=== PATIENT | female | born 1960 | race Caucasian/White ===

== ENCOUNTER → 2016-06-23 | Outpatient (CLI) | payer BC ==
[~2016-06-23] MED LIST: CALC-308 PO; FLUT9.9S NSEACH; MULT1CAP27 PO
--- OUTSIDE RECORDS SUMMARY | 2016-06-23 08:00 | XMS REPORT | Continuity of Care Document ---
Author Author [facility] Organization [facility] Address Unknown Phone Unavailable Care Team Providers Care Supervisor Compounding And Finishing Name Role Phone IVA ANNE MD PCP Insurance Providers Payer Name Policy Number Subscriber Name Relationship [facility] [id number] Royal Hammer 01 Advance Directives Directive Response Recorded Date/Time Advance Directives No 10/20/15 8:18am Health Care Power of Agricultural Research Engineer No 10/20/15 8:18am Organ Donor Yes 10/20/15 8:18am Resuscitation Status Full Code 10/20/15 8:18am Problems No problem information available. Medications Current Home Medications Medication Dose Units Route Directions Days/Qty Instructions Start Date Multivitamin 1 Each 2 Each Oral Daily 10/20/15 Calcium Carbonate 500 Mg 1,000 Mg Oral Bedtime take 2 (500mg) tab 03/27 Fluticasone Propionate 9.9 Ml 1 [place] Each Nostril Daily 10/20/15 Social History Social History Problem Response Recorded Date/Time Recent Foreign Travel No 10/20/2015 8:26am Smoking Status Former Smoker 10/20/2015 8:26am Query Response Start Date Stop Date Smoking Status Former Smoker Hospital Discharge Instructions Patient Instructions Physician Instructions New, Converted or Re-Newed RX: RX on Chart Plan of Care/Instructions/FU: 10 year repeat colonoscopy unless family history of colon cancer then 5 years. Activity as Tolerated: Yes Discharge Diet: Regular Diet (high fiber) Care Plan Patient Instructions:: 10 year repeat colonoscopy unless family history of colon cancer then 5years. Plan of Care Discharge Date 10/20/15 10:13am Instructions/Education Provided Colonoscopy (DC) Prescriptions See Medication Section Functional Status No functional status results. Allergies, Adverse Reactions, Alerts No known allergies. Immunizations No immunization records. Vital Signs Acute Vital Signs Vital Response Date/Time Temperature (Fahrenheit) 97.0 degrees F (97.6 - 99.5) 10/20/2015 10:13am Temperature (Calculated Celsius) 36.10765 degrees C (36.4 - 37.5) 10/20/2015 10:13am Temperature Source Tympanic 10/20/2015 10:13am Pulse Rate (adult) 51 bpm (60 - 90) 10/20/2015 10:13am Respiratory Rate 16 bpm (12 - 24) 10/20/2015 10:13am O2 Sat by Pulse Oximetry 97 % (88 - 100) 10/20/2015 10:13am Blood Pressure 95/65 mm Hg 10/20/2015 10:13am Pain Pain Intensity 0 10/20/2015 10:13am Height (Feet) 5 feet 10/20/2015 8:26am Height (Inches) 6.00 inches 10/20/2015 8:26am Height (Calculated Centimeters) 167.211984 cm 10/20/2015 8:26am Weight (Pounds) 177 pounds 10/20/2015 8:26am Weight (Ounces) 0.0 oz 10/20/2015 8:26am Weight (Calculated Grams) 70765.850 gm 10/20/2015 8:26am Weight (Calculated Kilograms) 80.727755 kilograms 10/20/2015 8:26am Calculated BMI 28.6 10/20/2015 8:26am Results No known relevant diagnostic tests, laboratory data and/or discharge summary. Procedures Procedure Status Date Provider(s) Anesthesia for 30 minutes Active 10/20/15 DICK HICKMAN DO Diagnostic colonoscopy Completed 10/20/15 DICK HICKMAN DO Encounters Encounter Location Arrival/Admit Date Discharge/Depart Date Attending Provider Registered [facility] 10/20/15 8:07am DICK HICKMAN DO Registered Clinic [facility] 10/15/15 5:41am DICK HICKMAN DO
--- NOTE | 2016-06-23 18:39 | Diagnostic Imaging Report ---
EXAMINATION: Left breast diagnostic mammogram. The current study was also evaluated with a Computer Aided Detection (CAD) system. INDICATION: New group of calcification in the medial aspect of the left breast. FINDINGS: The magnification compression views demonstrate heterogeneous cluster of calcification with difference sizes seen in the medial aspect of the left breast between 8 to 9 o'clock. These are newly detected compared to prior exam from 03/20/2015. There is another similar small cluster of calcification anteriorly in the upper periareolar region. These group of calcifications have central lucency and in favor of benign etiology. No soft tissue mass is seen. IMPRESSION: Cluster of calcifications in the medial aspect of the left breast and upper periareolar region with minimal heterogeneity and no definite associated mass. Ultrasound evaluation pending. ACR BI-RADS Category 0: Incomplete. (Needs additional imaging evaluation). Result letter will be mailed to the patient. Note: At least 10% of breast cancer is not imaged by mammography. Dictated by: Dictated on workstation # [id number]
--- NOTE | 2016-06-23 19:08 | Diagnostic Imaging Report ---
EXAMINATION: Left breast ultrasound. INDICATION: Groups of calcifications in the superior, periareolar and medial aspect of the left breast. FINDINGS: Four quadrants and the retroareolar region were scanned. The calcifications were not identified and there is no associated suspicious mass seen. IMPRESSION: No abnormality is seen. The two groups of calcifications in the left breast demonstrate are indeterminate but favored to be benign. A six-month followup left mammogram to ensure stability is recommended. ACR BI-RADS Category 3: Probably benign findings. Result letter will be mailed to the patient. Note: At least 10% of breast cancer is not imaged by mammography. Dictated by: Dictated on workstation # [id number]
== END ==
LOC: RAD 07:57
DX: R92.8 Other abnormal and inconclusive findings on diagnostic imaging of breast (principal)
CPT/HCPCS: 76641

== ENCOUNTER → 2016-12-23 | Outpatient (CLI) | payer BC ==
--- NOTE | 2016-12-23 10:42 | Diagnostic Imaging Report ---
Left breast diagnostic mammogram with 3-D tomographic views acquired. INDICATION: Followup left breast calcifications. COMPARISON: 06/23/2016, exam. FINDINGS: The left breast is composed of scattered fibroglandular densities. There is a group of calcifications seen in the medial aspect of the left breast and in the retroareolar region. These calcifications appear minimally more prominent compared to the prior exam. They do have generally rounded morphology with no significant heterogeneity in their shape. Slight differences in their sizes appear to be present. No associated mass is seen in both groups. Upon careful review these do not appear to have significantly changed and probably appear slightly more prominent on the current exam due to the acquired images with the new 3-D technique. IMPRESSION: Again seen groups of calcifications in the periareolar and medial aspect of the left breast. They appear minimally more prominent compared to the prior study; however, this is likely secondary to technique difference with no definitive change identified. These are favored to be benign. Another followup in six months is recommended to ensure further stability. Stereotactic biopsy evaluation could be considered as an alternative. ACR BI-RADS Category 3: Probably benign findings. Result letter will be mailed to the patient. Note: At least 10% of breast cancer is not imaged by mammography. Dictated by: Dictated on workstation # [id number]
== END ==
LOC: RAD 08:47
DX: R92.1 Mammographic calcification found on diagnostic imaging of breast (principal)

== ENCOUNTER → 2017-06-30 | Outpatient (CLI) | payer BC ==
--- NOTE | 2017-06-30 15:46 | Diagnostic Imaging Report ---
INDICATION: Followup calcifications. At this time there are no current complaints. EXAMINATION: Bilateral breast digital diagnostic mammogram with CAD. The current study was also evaluated with a Computer Aided Detection (CAD) system. COMPARISON: This study was compared to the prior exams from 03/07/14 to 12/23/2016. FINDINGS: The screening mammogram performed at [facility] in [place], [place] on 06/01/2016 noted developing microcalcifications in the 8 o'clock position of the left breast. In reviewing that exam, there is also a new group of calcifications in the medial supra-areolar region of the left breast. These calcifications were felt to be most likely benign on the subsequent diagnostic mammogram and ultrasound exam of 06/23/2016. The calcifications did seem minimally more prominent on the followup exam of 12/23/2016 and still had a generally benign appearance. On this study, the calcifications are again identified and do not appear to have changed adversely. They do seem somewhat coarser than on the prior study but these calcifications still have a generally benign appearance. I would recommend that a short-term (six month) followup mammogram of the left breast be obtained for continued evaluation, however. The overall appearance of the breasts has not changed significantly, otherwise. There are scattered fibroglandular densities in both breasts which could obscure a lesion. There is no primary or secondary sign of malignancy noted. IMPRESSION: The calcifications in the left periareolar region and in the 8 o'clock position of the left breast, seen previously, are somewhat coarser than noted on the prior exam but do not appear to have changed adversely. Most likely these calcifications are benign. Recommendations as above. ACR BI-RADS Category 3: Probably benign findings. Result letter will be mailed to the patient. Note: At least 10% of breast cancer is not imaged by mammography. Dictated by: Dictated on workstation # [id number]
== END ==
LOC: RAD 08:47
DX: R92.1 Mammographic calcification found on diagnostic imaging of breast (principal)
CPT/HCPCS: 77066

== ENCOUNTER 2018-02-08 08:03 | Day surgery (SDC) | payer BC ==
[~2018-02-08] VITALS: Ht 165.1 cm; Wt 80.3 kg
--- OUTSIDE RECORDS SUMMARY | 2018-02-08 08:10 | XMS REPORT | Continuity of Care Document ---
Author Author [facility] Organization [facility] Address Unknown Phone Unavailable Allergies Active Description Code Type Severity Reaction Onset Reported/Identified Relationship to Patient Clinical Status Yes No Known Drug Allergies [id number] Drug Allergy Unknown N/A 10/20/2015 Medications There is no data. Problems Date Dx Coded Attending Type Code Diagnosis Diagnosed By 10/20/2015 DICK HICKMAN DO Ot Z12.11 ENCOUNTER FOR SCREENING FOR MALIGNANT NE 10/28/2015 DICK HICKMAN DO Ot Z12.11 ENCOUNTER FOR SCREENING FOR MALIGNANT NE 07/06/2016 ABRIL VALLES CORK INSULATOR Ot R92.8 OTH ABN AND INCONCLUSIVE FINDINGS ON DX 12/22/2016 ABRIL VALLES CORK INSULATOR Ot R92.8 OTH ABN AND INCONCLUSIVE FINDINGS ON DX 12/29/2016 ABRIL VALLES CORK INSULATOR Ot R92.1 MAMMOGRAPHIC CALCIFCN FOUND ON DIAGNOSTI 01/04/2017 ABRIL VALLES CORK INSULATOR Ot R92.1 MAMMOGRAPHIC CALCIFCN FOUND ON DIAGNOSTI 01/04/2017 ABRIL VALLES CORK INSULATOR Ot R92.1 MAMMOGRAPHIC CALCIFCN FOUND ON DIAGNOSTI 01/04/2017 ABRIL VALLES CORK INSULATOR Ot R92.1 MAMMOGRAPHIC CALCIFCN FOUND ON DIAGNOSTI 01/06/2017 ABRIL VALLES CORK INSULATOR Ot R92.1 MAMMOGRAPHIC CALCIFCN FOUND ON DIAGNOSTI 06/27/2017 ABRIL VALLES CORK INSULATOR Ot R92.8 OTH ABN AND INCONCLUSIVE FINDINGS ON DX 06/27/2017 ABRIL VALLES CORK INSULATOR Ot R92.1 MAMMOGRAPHIC CALCIFCN FOUND ON DIAGNOSTI 06/30/2017 ABRIL VALLES CORK INSULATOR Ot R92.8 OTH ABN AND INCONCLUSIVE FINDINGS ON DX 06/30/2017 ABRIL VALLES CORK INSULATOR Ot R92.1 MAMMOGRAPHIC CALCIFCN FOUND ON DIAGNOSTI 07/03/2017 ABRIL VALLES CORK INSULATOR Ot R92.1 MAMMOGRAPHIC CALCIFCN FOUND ON DIAGNOSTI 07/13/2017 ABRIL VALLES CORK INSULATOR Ot R92.1 MAMMOGRAPHIC CALCIFCN FOUND ON DIAGNOSTI 01/29/2018 ABRIL VALLES Ot R92.8 OTH ABN AND INCONCLUSIVE FINDINGS ON DX 01/29/2018 ABRIL VALLESP Ot R92.1 MAMMOGRAPHIC CALCIFCN FOUND ON DIAGNOSTI 01/29/2018 ABRIL VALLES Ot R92.1 MAMMOGRAPHIC CALCIFCN FOUND ON DIAGNOSTI Procedures There is no data. Results There is no data. Encounters ACCT No. Visit Date/Time Discharge Status Pt. Type Provider Facility Loc./Unit Complaint [id number] 06/04/2016 09:10:08 06/04/2016 23:59:59 CLS Outpatient DalyByron [id number] 01/30/2018 08:52:00 01/30/2018 23:59:59 CLS Outpatient OMID FELICIANO, IVA R [facility] [address] RAD BILIOUS VOMITING W/ NAUSEA [id number] 06/30/2017 08:47:00 06/30/2017 23:59:59 CLS Outpatient ABRIL VALLES [facility] [address] RAD ABNORMAL MAMMO [id number] 12/23/2016 08:47:00 12/23/2016 23:59:59 CLS Outpatient ABRIL VALLES CORK INSULATOR [facility] [address] RAD ABNORMAL MAMMO [id number] 06/23/2016 07:57:00 06/23/2016 23:59:59 CLS Outpatient ABRIL VALLES CORK INSULATOR [facility] [address] RAD ABNORMAL MAMMO [id number] 10/20/2015 08:07:00 10/20/2015 10:13:00 DIS Outpatient DICK HICKMAN DO [facility] [id number] 10/15/2015 05:41:00 10/15/2015 23:59:59 CLS Outpatient DICK HICKMAN DO [facility] [address] PREOP
--- OUTSIDE RECORDS SUMMARY | 2018-02-08 08:10 | XMS REPORT ---
Author Author Byron Kauffman [facility] Address [address] [place], [place] [id number] Care Team Providers Care Medical Planner Name Role Phone Byron Kauffman PCP Unavailable Allergies and Adverse Reactions Not available. Plan of Treatment Not available. Medications Active Name Start Date Estimated Completion Date SIG Comments Zithromax Z-Lawrence 250 mg oral tablet 06/04/2016 06/09/2016 take 2 tablets ( 500 mg) by oral route once daily for 1 day then 1 tablet (250 mg) by oral route once daily for 4 days pseudoephedrine HCl 120 mg oral tablet extended release 06/04/20162015 take 1 tablet (120 mg) by oral route every 12 hours as needed for 4 days Problem List Not available. Vital Signs Date Time BP-Sys(mm[Hg] BP-Annalee(mm[Hg]) HR(bpm) RR(rpm) Temp WT HT HC BMI BSA BMI Percentile O2 Sat(%) 06/04/2016 8:15:00 AM 124 mmHg 82 mmHg 69 bpm 18 rpm 97.3 F 190 lbs 66 in 30.67 kg/m2 2.00 m2 98 % Social History Not available. History of Procedures Not available. Results Summary Not available. History Of Immunizations Not available. History of Past Illness Name Date of Onset Comments Acute frontal sinusitis, recurrence not specified Jun 04 2016 8:17AM Payers Insurance Name Company Name Plan Name Plan Number Policy Number Policy Group Number [id number]/A History of Encounters Visit Date Visit Type Provider 06/04/2016 Office visit Byron Kauffman NP
[2018-02-08] MEDS ORDERED: LACTATED RINGERS 1,000 ML IV PRN (08:38)
[2018-02-08] MEDS ORDERED: DEXAMETHASONE 10 MG/ML (DECADRON) 1 ML VIAL ONE (08:41)
[2018-02-08] MEDS ORDERED: proPOfol 200 MG/20 ML (DIPRIVAN) VIAL IV ONE (08:41)
[2018-02-08] MEDS ORDERED: ONDANSETRON 4 MG/2 ML (SDV) Z0FRAN ONE (08:41)
[2018-02-08] MEDS ORDERED: LIDOCAINE PF 2% 5 ML (XYLOCAINE) VIAL ONE (08:41)
[2018-02-08] MEDS ORDERED: fentaNYL INJECTION 100 MCG/2 ML AMP ONE (08:41)
[2018-02-08] MEDS: LACTATED RINGERS 1,000 ML IV PRN ×2 (08:43→10:00)
[2018-02-08] MEDS ORDERED: ROCURONIUM 10 MG/ML 5 ML SYRINGE IV ONE (08:44)
[2018-02-08] MEDS ORDERED: SEVOFLURANE (ULTANE) 15 ML INHAL SOLN ONE ×4 (08:44→10:16)
[2018-02-08] MEDS ORDERED: ceFAZolin 2 GM IV Premixed 50 ML IV ONE (08:45)
[2018-02-08] MEDS ORDERED: FAMOTIDINE 20MG/2ML IV (PEPCID) IV ONE (08:45)
[2018-02-08] MEDS ORDERED: ONDANSETRON 4 MG/2 ML (SDV) Z0FRAN IV ONE (08:45)
[2018-02-08] MEDS ORDERED: SCOPOLAMINE 1.5 MG (TRANSDERM-SCOP) PATCH TOP ONE (08:45)
[2018-02-08 08:58] LABS: BASOPHILS % (AUTO) 1 % (0-10); EOSINOPHILS % (AUTO) 1 % (0-10); HEMATOCRIT 41 % (35-52); HEMOGLOBIN 14.6 G/DL (11.5-16.0); LYMPHOCYTES # (AUTO) 1.4 X 10^3 (1.0-4.0); LYMPHOCYTES % (AUTO) 35 % (12-44); MEAN CORPUSCULAR HEMOGLOBIN 32 PG (25-34); MEAN CORPUSCULAR HGB CONC 36 G/DL (32-36); MEAN CORPUSCULAR VOLUME 89 FL (80-99); MEAN PLATELET VOLUME 10.5 FL (7.4-10.4); MONOCYTES # (AUTO) 0.4 X 10^3 (0.0-1.0); MONOCYTES % (AUTO) 10 % (0-12); NEUTROPHILS # (AUTO) 2.1 X 10^3 (1.8-7.8); NEUTROPHILS % (AUTO) 53 % (42-75); PLATELET COUNT 184 10^3/uL (130-400); RED BLOOD COUNT 4.57 10^6/uL (4.35-5.85); RED CELL DISTRIBUTION WIDTH 12.4 % (10.0-14.5)
[2018-02-08 08:59] VITALS: BP 128/77
[2018-02-08] MEDS ORDERED: BUPIVACAINE 0.25% 30 ML (SENSORCAINE) VIAL ONE (09:13)
[2018-02-08] MEDS ORDERED: LIDOCAINE 1% INJ 20 ML 20 ML VIAL ONE (09:13)
[2018-02-08] MEDS ORDERED: BUPIVACAINE 0.5% 30 ML (SENSORCAINE) VIAL ONE (09:15)
--- NOTE | 2018-02-08 09:20 | Progress Note-Pre Operative ---
Pre-Operative Progress Note H&P Reviewed The H&P was reviewed, patient examined and no changes noted. Date Seen by Provider: Feb 08, 2018 Time Seen by Provider: 09:20 Date H&P Reviewed: Feb 08, 2018 Time H&P Reviewed: 09:20 Pre-Operative Diagnosis: ruq abdominal pain, symptomatic cholelithiasis DICK HICKMAN DO Feb 08, 2018 09:20
[2018-02-08] MEDS ORDERED: MIDAZOLAM 2 MG/2 ML (VERSED) VIAL ONE (09:27)
[2018-02-08] MEDS ORDERED: PHENYLEPHRINE 100 MCG/ML 10 ML (ANESTHESIA) SYR ONE (10:01)
[2018-02-08] MEDS ORDERED: ACHD5005 PO (10:22)
[2018-02-08] MEDS ORDERED: DOCU-143 PO (10:22)
--- NOTE | 2018-02-08 10:40 | Discharge Inst-Simple/Standard ---
Discharge Inst-Standard Discharge Medications New, Converted or Re-Newed RX: RX on Chart Patient Instructions/Follow Up Plan of Care/Instructions/FU: 2 Weeks Antonio. Stay nothing to eat or drink at this time. You need to go to [facility] for ERCP with Dr. Horne. This has been arranged for you. Activity as Tolerated: No Discharge Diet: Other Diet (Nothing to eat or drink till after ERCP.) Other Inst to Patient Follow up Appt: Make appointment for 2 weeks. Instructions: No lifting greater than 10 pounds. No strenuous activity. May shower in 24 hours, no tub bath or soaking. Use incentive spirometer at home as directed. No Smoking Skin/Wound Care: You have special glue over incision, it will fall off on its own. Symptoms to Report: Appetite Changes, Extremity Discoloration, Numbness/Tingling, Swelling Increased , Bleeding Excessive, Eyesight Changes, Pain Increased, Urine Color Change, Constipation(Persistent), Fever over 101 degree F, Pain/Pressure in chest, Urinating Difficulty, Cough Up/Vomit Blood, Heart Beat Irreg/Pounding, Pain/ Pressure in jaw, Vaginal Bleeding Increase, Cramps in feet or legs, Lightheadedness, Pain/Pressure in shoulder, Diarrhea(Persistent), Memory Changes Suddenly, Questions/Concerns, Weight gain consecutive days, Dizziness/ Fainting, Nausea/Vomiting, Shortness of Breath, Weight gain over 2 pounds. If eyes or skin turn yellow notify physician. If questions or concerns contact your physician Or seek help at emergency department. DICK HICKMAN DO Feb 08, 2018 10:40
--- NOTE | 2018-02-08 10:42 | Progress Note-Post Operative ---
Post-Operative Progess Note Surgeon (s)/Bilingual Research Interviewer (s) Surgeon DICK HICKMAN DO Bilingual Research Interviewer: Dr. Gallardo Pre-Operative Diagnosis ruq abdominal pain, symptomatic cholelithiasis Post-Operative Diagnosis same and choledocolithaisis Procedure & Operative Findings Date of Procedure 02/08/18 Procedure Performed/Findings lap gerri c ioc Anesthesia Type gen Estimated Blood Loss Estimated blood loss (mL): min Specimens/Packing Specimens Removed gallbladder DICK HICKMAN DO Feb 08, 2018 10:41
[2018-02-08] MEDS ORDERED: PROMETHAZINE INJ 25 MG/ML (PHENERGAN) AMP IVP ONE (10:45)
[2018-02-08] MEDS ORDERED: ONDANSETRON 4 MG/2 ML (SDV) Z0FRAN IVP PRN (10:45)
[2018-02-08] MEDS ORDERED: morphine INJ 10 MG/ML 1ML (SYR OR VIAL) IVP ONE ×2 (10:45→12:45)
--- NOTE | 2018-02-08 10:45 | Anesthesia-General Post-Op ---
General Patient Condition Mental Status/LOC: Same as Preop Cardiovascular: Satisfactory Nausea/Vomiting: Absent Respiratory: Satisfactory Pain: Controlled Complications: Absent Post Op Complications Complications None Follow Up Care/Instructions Patient Instructions None needed. Anesthesia/Patient Condition Patient Condition Patient is doing well, no complaints, stable vital signs, no apparent adverse anesthesia problems. No complications reported per nursing. VERONICA NIELSEN CRNA Feb 08, 2018 10:45
[2018-02-08 11:35] VITALS: BP 105/59
[2018-02-08 12:05] VITALS: BP 99/61
[2018-02-08] MEDS ORDERED: morphine INJ 4 MG/ML 1 ML (VIAL/SYRINGE) IVP PRN (12:30)
[2018-02-08 12:35] VITALS: BP 101/60
[2018-02-08 14:00] VITALS: BP 107/66
--- NOTE | 2018-02-08 14:23 | Diagnostic Imaging Report ---
Indication: Gallbladder disease. Findings: Intraoperative criteria was performed following cholecystectomy. There is mild intrahepatic and extrahepatic biliary dilatation. There are multiple intraluminal filling defects seen within the distal common bile duct compatible with choledocholithiasis. There is a small amount of contrast extending into the duodenum. Impression: Multiple intraluminal filling defects in the distal common bile duct compatible with choledocholithiasis. Moderate intrahepatic and extrahepatic biliary ductal dilatation. Dictated by: Dictated on workstation # [id number]
--- NOTE | 2018-02-13 22:22 | OPERATIVE REPORT ---
DATE OF SERVICE: 02/08/2018 PREOPERATIVE DIAGNOSIS: Symptomatic cholelithiasis. POSTOPERATIVE DIAGNOSIS: Symptomatic cholelithiasis with choledocholithiasis. PROCEDURE: Laparoscopic cholecystectomy with intraoperative cholangiogram. SURGEON: Alex Alvarez DO INVESTMENT ACCOUNTING CLERK: Dr. Gallardo, assisted in retraction, dissection and closure. ESTIMATED BLOOD LOSS: Minimal. COMPLICATIONS: None. INDICATIONS: The patient is a 58-year-old female with symptomatic cholelithiasis. She understands risks and benefits of procedure and wished to proceed with procedure. Consent was signed in the chart. PROCEDURE: The patient was taken to the operating suite, she was prepped and draped in sterile fashion. Surgical pause was performed. Sherif technique was used to enter the abdomen. Once entered, a 0 Vicryl was placed in a [id number] fashion on the fascia for closure at the end of the case. A balloon trocar was inserted into the abdomen and pneumoperitoneum was achieved. Under direct visualization of the laparoscope, a 5 mm trocar was then placed in the subxiphoid region and two 5 mm trocars were placed in the right upper quadrant. Gallbladder was grasped, elevated. There were some adhesions to it. They were taken down with a [place] and some slight cautery. The cystic duct and cystic artery were then dissected out. Clips were placed on the proximal and distal portion of the cystic artery and clip was placed on the distal portion of the cystic duct. The duct was then partially transected. Arrow catheter was inserted and cholangiogram was then performed. There were filling defects in the distal portion of the common bile duct, little bit of contrast did go through though not causing complete obstruction. Couple small stones were able to get removed through the cystic duct through the partial transection of the cystic duct. Arrow catheter was removed. Clips were placed on the proximal portion of the cystic duct and then the duct and artery were then transected. Hook cautery used to dissect the gallbladder from the gallbladder fossa achieving hemostasis. This was then placed in an Endobag and removed through the 12 mm trocar site. The abdomen was then irrigated with copious amounts of irrigation and suction. The trocars were removed. The 0 Vicryl on the fascia of the 12 mm trocar site was then closed. The skin was then closed using 4-0 Monocryl. The skin Affix was placed over the incisions after they were washed and dried. The patient tolerated procedure well without any complications. She was taken to recovery room in stable condition. The patient had ERCP set up with Dr. Horne at [facility]. The patient to be discharged for transfer there. Job ID: [id number] DocumentID: [id number] Dictated Date: 02/13/2018 17:07:08 Community Organization Aide Date: 02/13/2018 22:21:47 Dictated By: DO OLINDA MARQUEZ
== END 2018-02-08 14:00 | disposition home or self-care (01) ==
LOC: SDC 08:03
PROVIDERS: ATTEND Surgery
DX: K80.70 Calculus of gallbladder and bile duct without cholecystitis without obstruction (principal); E66.9 Obesity, unspecified; Z68.29 Body mass index [BMI] 29.0-29.9, adult; Z87.891 Personal history of nicotine dependence; Z98.84 Bariatric surgery status
CPT/HCPCS: 36415; 85025; 87081; 88304; 94664

== ENCOUNTER → 2018-04-18 | Outpatient (CLI) | payer BC ==
[~2018-04-18] MED LIST changes: +ACHD5005 PO; +DOCU-143 PO
--- NOTE | 2018-04-18 12:16 | Diagnostic Imaging Report ---
Indication: Left breast calcifications. The patient presents for followup. Correlation is made with prior mammogram from 06/30/2017. 2-D and 3-D unilateral left diagnostic mammography was performed. Scattered fibroglandular densities in the left breast are again noted. The clusters of coarse microcalcifications in the superior retroareolar portion of the left breast as well as the inner portion of the left breast at mid depth appears very similar to prior exam. These are coarse and have a benign appearance. No associated soft tissue mass is identified. Benign nodular density in the upper outer left breast at posterior depth is stable and most likely represents an intraparenchymal lymph node. No new mass is seen. Impression: BI-RADS category 2 Benign-appearing calcifications in the left breast appear stable when compared with prior exam. The patient may return to routine annual screening mammography. Patient is due for bilateral mammography June 2018. Dictated by: Dictated on workstation # [id number]
== END ==
LOC: RAD 08:49
PROVIDERS: ATTEND Nurse Practitioner
DX: R92.1 Mammographic calcification found on diagnostic imaging of breast (principal)

== ENCOUNTER → 2018-10-25 | Outpatient (CLI) | payer BC ==
--- NOTE | 2018-10-26 17:13 | Diagnostic Imaging Report ---
INDICATION: Routine screening. COMPARISON: Comparison is made with prior mammograms from 06/30/2017 and 06/01/2016. TECHNIQUE: 2-D and 3-D bilateral screening mammography was performed with Computer Aided Detection (CAD) system. FINDINGS: Scattered fibroglandular densities are identified bilaterally. Benign nodular densities in the upper-outer aspects of both breasts are stable and consistent with benign etiology. Left breast calcifications are stable. No new mass or malignant-appearing microcalcifications are seen. Axillae are unremarkable. IMPRESSION: No mammographic features suspicious for malignancy are identified. ACR BI-RADS Category 2: Benign findings. Result letter will be mailed to the patient. Note: At least 10% of breast cancer is not imaged by mammography. Dictated on workstation # [id number]
== END ==
LOC: RAD 14:06
PROVIDERS: ATTEND Obstetrics & Gynecology
DX: Z12.31 Encounter for screening mammogram for malignant neoplasm of breast (principal)
CPT/HCPCS: 77067

== ENCOUNTER → 2020-02-06 | Outpatient (CLI) | payer BC, OTHER ==
--- NOTE | 2020-02-06 14:24 | Diagnostic Imaging Report ---
INDICATION: Routine screening. Comparison is made with prior mammogram from 10/25/2018 and 06/30/2017. 2-D and 3-D bilateral screening mammography was performed with CAD. Scattered fibroglandular densities are identified bilaterally. There are benign calcifications in both breasts. Benign-appearing nodules in the outer aspects of both breasts are stable. No new mass or malignant appearing microcalcifications are seen. Axillae are unremarkable. IMPRESSION: BI-RADS Category 2 No mammographic features suspicious for malignancy are identified. ACR BI-RADS Category 2: Benign findings. Result letter will be mailed to the patient. Note: At least 10% of breast cancer is not imaged by mammography. Dictated by: Dictated on workstation # [id number]
== END ==
LOC: RAD 10:45
PROVIDERS: ATTEND Nurse Practitioner Women's Health
DX: Z12.31 Encounter for screening mammogram for malignant neoplasm of breast (principal)
CPT/HCPCS: 77063; 77067

== ENCOUNTER → 2021-10-21 | Outpatient (CLI) | payer BC, OTHER ==
--- NOTE | 2021-10-22 10:46 | Diagnostic Imaging Report ---
Indication: 3-D digital screening with CAD. CAD is utilized. The current study was also evaluated with a Computer Aided Detection (CAD) system. COMPARISON: 01/2020, 10/2018 FINDINGS: Density 2. No breast mass, spiculated mass, architectural distortion, spiculated lesion, suspicious calcifications or evidence for malignancy. IMPRESSION: BI-RADS Category 1 ACR BI-RADS Category 1: Negative. Result letter will be mailed to the patient. Note: At least 10% of breast cancer is not imaged by mammography. Dictated by: Dictated on workstation # [id number]
== END ==
LOC: RAD 14:45
PROVIDERS: ATTEND Nurse Practitioner Women's Health
DX: Z12.31 Encounter for screening mammogram for malignant neoplasm of breast (principal)
CPT/HCPCS: 77063; 77067